=== PATIENT | male | born 1965 | race Caucasian/White ===

== ENCOUNTER → 2019-04-25 | Outpatient (REF) | LOC: M LAB LCGH 10:18 | PROVIDERS: ATTEND Surgery | DX: Z12.11 Encounter for screening for malignant neoplasm of colon (principal); K63.5 Polyp of colon ==

== ENCOUNTER → 2025-04-25 | Outpatient (REF) ==
[~2025-04-25] MED LIST: AMLO-325 PO; ASPI81TA26 PO; ATRO0.063 INH; CENT1TAB PO; COLE625T PO; EZET10TA57 PO; META28.32 PO; METF-838 PO; METO50TA7 PO; MILK175C6 PO; MONT10TA97 PO; PANT40TA29 PO; PEPC1TAB5 PO; ROSU10TA61 PO; SPIR12.9 INH; VITA100065 PO; VITA100T86 PO; VITA1TAB82 PO; ZYRTTAB8 PO; [UNRECOGNIZED DRUG - CODE] PO; sunflower lecithin PO
== END ==
LOC: M LABCFH 13:40
DX: N39.0 Urinary tract infection, site not specified (principal)

== ENCOUNTER 2025-05-05 06:44 | Day surgery (SDC) | payer BC ==
[~2025-05-05] VITALS: Ht 180.3 cm; Wt 74.2 kg
[2025-05-05] MEDS ORDERED: LR 1,000 ML IV SCH ×2 (06:55→10:00)
[2025-05-05] MEDS ORDERED: ONDANSETRON 4MG 2ML VIAL As Ordered ONE (06:56)
[2025-05-05] MEDS ORDERED: dexAMETHasone 4 MG/ML 1 ML VIAL As Ordered ONE (06:56)
[2025-05-05] MEDS ORDERED: LIDOCAINE 2% 100 MG/5 ML SDV (FOR ANES.) As Ordered ONE (06:56)
[2025-05-05] MEDS ORDERED: MIDAZOLAM INJ 2 MG/2 ML VIAL As Ordered ONE (07:47)
[2025-05-05] MEDS: LIDOCAINE 2% 5 ML JELLY UROJET As Ordered ONE (08:19)
[2025-05-05] MEDS: ceFAZolin SOD 2 GM IV ONCE IV ONE (08:36)
[2025-05-05] MEDS ORDERED: ACETAMINOPHEN 1000MG/100ML IV BAG As Ordered ONE (08:50)
[2025-05-05] MEDS: ISOVUE-300 61% 100 ML VIAL As Ordered ONE (09:05)
[2025-05-05] MEDS ORDERED: HYDROMORPHONE HCL 0.5 MG/0.5 ML SYRINGE IV PRN (10:00)
[2025-05-05] MEDS ORDERED: ONDANSETRON 4MG 2ML VIAL IV PRN (10:00)
[2025-05-05] MEDS ORDERED: OXYB5TAB14 PO (10:27)
[2025-05-05] MEDS ORDERED: OXYC1TAB23 PO (10:27)
[2025-05-05 11:05] VITALS: BP 161/70; TEMP 97.1; O2SAT 99
== END 2025-05-05 11:11 | disposition home or self-care (01) ==
LOC: M SDC 06:44
PROVIDERS: ATTEND Urology
DX: N13.2 Hydronephrosis with renal and ureteral calculous obstruction (principal); E11.9 Type 2 diabetes mellitus without complications; I10 Essential (primary) hypertension; J44.9 Chronic obstructive pulmonary disease, unspecified; E78.00 Pure hypercholesterolemia, unspecified; K21.9 Gastro-esophageal reflux disease without esophagitis; Z79.899 Other long term (current) drug therapy; Z79.82 Long term (current) use of aspirin; Z79.84 Long term (current) use of oral hypoglycemic drugs; Z88.8 Allergy status to other drugs, medicaments and biological substances; Z87.891 Personal history of nicotine dependence
CPT/HCPCS: 52356; 76000; 82365; C1769; C2617; J0131; J0688; J1100; J2250; J2405; J3010; Q9967

== ENCOUNTER → 2025-08-08 | Outpatient (CLI) | payer BC ==
[~2025-08-08] MED LIST changes: +OXYB5TAB14 PO; +OXYC1TAB23 PO; -ROSU10TA61 PO; +ROSU10TA90 PO
== END ==
LOC: M RAD 09:54
PROVIDERS: ATTEND Internal Medicine Critical Care Medicine
DX: Z87.891 Personal history of nicotine dependence (principal)